=== PATIENT | female | born 1985 | race Caucasian/White ===

== ENCOUNTER 2016-07-07 11:02 | Emergency (ER) | payer OTHER ==
[2016-07-07] MEDS ORDERED: METHOCARBAMOL 1,000 MG/10 ML VIAL (J2800) As Ordered ONE (11:51)
[2016-07-07] MEDS ORDERED: KETOROLAC 30 MG/ML VIAL (J1885) As Ordered ONE (11:51)
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
--- NOTE | 2016-07-07 13:23 | EDDOCDS ---
Physician Documentation [facility] Name: Mir Taylor Age: 31 yrs Sex: Female : 1985 Arrival Date: 07/07/2016 Time: 11:02 Bed PD Private MD: NO PRIMARY PHYSICIAN, . Disposition: 07/07/16 13:12 Discharged to Home/Self Care. Impression: Low back pain, Strain of muscle, fascia and tendon of lower back. - Condition is Stable. - Discharge Instructions: Back Pain, Adult, [id number]. - Prescriptions for Medrol (James) 4 mg Oral Tablets, Dose Pack - take 1 Pack by ORAL route as directed - follow package instructions; 1 packet. Robaxin- 750 750 mg Oral Tablet - take 1 tablet by ORAL route every 6 hours As needed; 40 tablet. - Medication Reconciliation, Local Pharmacy Hours form. - Follow up: Orthopaedics, [facility]; When: 1 - 2 days; Reason: Further diagnostic work-up, Recheck today's complaints, Continuance of care. - Problem is new. - Symptoms are unchanged. Historical: - Allergies: no known allergies; - Home Meds: 1. none - PMHx: none; - PSHx: Cesearean Section; Tubal ligation; - Social history: Smoking status: Patient uses tobacco products, current every day smoker. No barriers to communication noted, The patient speaks fluent Ukrainian. - Family history: Not pertinent. - : The pt / caregiver states he / she is not on anticoagulants. Home medication list is obtained from the patient. - Exposure Risk Screening:: None identified. 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 4 in. (162.56 cm); Pain 7/10; 13:17 Pain 4/10; js13 13:17 Pain 3/10; js13 13:21 BP 143 / 70; Pulse 87; Resp 18; Temp 98.7; Pulse Ox 98% ; Pain 5/10; jam1 11:03 Body Mass Index 31.93 (84.37 kg, 162.56 cm) elp MDM: 11:39 Financial registration complete. lg 11:41 [facility] Payment Agreement was scanned into [employer] and attached to record. lg 11:48 ketorolac 30 mg IM once ordered. btw 11:48 Robaxin 250 mg IM once ordered. btw 11:49 Spine. Lumbosacral, Complete Ordered. EDMS Administered Medications: 11:57 Drug: ketorolac 30 mg [ketorolac 30 mg/mL (1 mL) injection solution (1 mL)] Route: IM; ml6 Site: left deltoid; 13:17 Follow up: Pain 3/10 Adult; Response: Pain is decreased js13 11:57 Drug: Robaxin 250 mg [Robaxin 100 mg/mL injection solution (2.5 mL)] Route: IM; Site: ml6 left vastus lateralis; 13:17 Follow up: Pain 4/10 Adult; Response: Pain is decreased js13 Signatures: Dispatcher [employer] EDMS Ofelia Dominguez Reg Reg Naomy Garza,RN RN kr3 Rigoberto Benavides PA PA btw Jessica Wing RN RN js13 Kenn Rios RN ml6 The chart was reviewed and I authenticate all verbal orders and agree with the evaluation and treatment provided.Attachments: 11:41 [facility] Payment Agreement lg MTDD
--- NOTE | 2016-07-07 15:01 | REP ---
Lumbar spine series: Five views. History: Atraumatic midline lumbar pain. Findings: Lumbar vertebral body heights are preserved. Alignment is normal. Disc spaces are maintained. Pedicles and posterior elements are intact. Facets are unremarkable. Psoas margins are symmetric. Sacrum and SI joints are intact. Impression: No abnormality noted. Signed by Wale Bazan MD 07/07/2016 03:39 P
--- NOTE | 2016-07-09 14:23 | EDDOCDS ---
Physician Documentation [facility] Name: Mir Taylor Age: 31 yrs Sex: Female : 1985 Arrival Date: 07/07/2016 Time: 11:02 Bed PD Private MD: NO PRIMARY PHYSICIAN, . Disposition: 07/07/16 13:12 Discharged to Home/Self Care. Impression: Low back pain, Strain of muscle, fascia and tendon of lower back. - Condition is Stable. - Discharge Instructions: Back Pain, Adult, [id number]. - Prescriptions for Medrol (James) 4 mg Oral Tablets, Dose Pack - take 1 Pack by ORAL route as directed - follow package instructions; 1 packet. Robaxin- 750 750 mg Oral Tablet - take 1 tablet by ORAL route every 6 hours As needed; 40 tablet. - Medication Reconciliation, Local Pharmacy Hours form. - Follow up: Orthopaedics, [facility]; When: 1 - 2 days; Reason: Further diagnostic work-up, Recheck today's complaints, Continuance of care. - Problem is new. - Symptoms are unchanged. Historical: - Allergies: no known allergies; - Home Meds: 1. none - PMHx: none; - PSHx: Cesearean Section; Tubal ligation; - Social history: Smoking status: Patient uses tobacco products, current every day smoker. No barriers to communication noted, The patient speaks fluent Arabic. - Family history: Not pertinent. - : The pt / caregiver states he / she is not on anticoagulants. Home medication list is obtained from the patient. - Exposure Risk Screening:: None identified. 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 4 in. (162.56 cm); Pain 7/10; 13:17 Pain 4/10; js13 13:17 Pain 3/10; js13 13:21 BP 143 / 70; Pulse 87; Resp 18; Temp 98.7; Pulse Ox 98% ; Pain 5/10; jam1 11:03 Body Mass Index 31.93 (84.37 kg, 162.56 cm) elp MDM: 11:39 Financial registration complete. lg 11:41 [facility] Payment Agreement was scanned into [employer] and attached to record. lg 11:48 ketorolac 30 mg IM once ordered. btw 11:48 Robaxin 250 mg IM once ordered. btw 11:49 Spine. Lumbosacral, Complete Ordered. EDMS 13:48 T-Sheet-- Draft Copy was scanned into [employer] and attached to record. seh Administered Medications: 11:57 Drug: ketorolac 30 mg [ketorolac 30 mg/mL (1 mL) injection solution (1 mL)] Route: IM; ml6 Site: left deltoid; 13:17 Follow up: Pain 3/10 Adult; Response: Pain is decreased js13 11:57 Drug: Robaxin 250 mg [Robaxin 100 mg/mL injection solution (2.5 mL)] Route: IM; Site: ml6 left vastus lateralis; 13:17 Follow up: Pain 4/10 Adult; Response: Pain is decreased js13 Signatures: Dispatcher [employer]Host EDMS Ofelia Dominguez Reg Reg lg Naomy Garza,RN RN kr3 Rigoberto Benavides PA PA btw Jessica Wing RN RN js13 Elizabeth Kincaid Matthew RN ml6 The chart was reviewed and I authenticate all verbal orders and agree with the evaluation and treatment provided.Attachments: 11:41 [facility] Payment Agreement lg 13:48 T-Sheet-- Draft Copy se Chart Complete MTDD
--- NOTE | 2016-07-09 14:23 | EDDOCDS ---
Physician Documentation [facility] Name: Mir Taylor Age: 31 yrs Sex: Female : 1985 Arrival Date: 07/07/2016 Time: 11:02 Bed PD Private MD: NO PRIMARY PHYSICIAN, . Disposition: 07/07/16 13:12 Discharged to Home/Self Care. Impression: Low back pain, Strain of muscle, fascia and tendon of lower back. - Condition is Stable. - Discharge Instructions: Back Pain, Adult, [id number]. - Prescriptions for Medrol (James) 4 mg Oral Tablets, Dose Pack - take 1 Pack by ORAL route as directed - follow package instructions; 1 packet. Robaxin- 750 750 mg Oral Tablet - take 1 tablet by ORAL route every 6 hours As needed; 40 tablet. - Medication Reconciliation, Local Pharmacy Hours form. - Follow up: Orthopaedics, [facility]; When: 1 - 2 days; Reason: Further diagnostic work-up, Recheck today's complaints, Continuance of care. - Problem is new. - Symptoms are unchanged. Historical: - Allergies: no known allergies; - Home Meds: 1. none - PMHx: none; - PSHx: Cesearean Section; Tubal ligation; - Social history: Smoking status: Patient uses tobacco products, current every day smoker. No barriers to communication noted, The patient speaks fluent Irish. - Family history: Not pertinent. - : The pt / caregiver states he / she is not on anticoagulants. Home medication list is obtained from the patient. - Exposure Risk Screening:: None identified. 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 4 in. (162.56 cm); Pain 7/10; 13:17 Pain 4/10; js13 13:17 Pain 3/10; js13 13:21 BP 143 / 70; Pulse 87; Resp 18; Temp 98.7; Pulse Ox 98% ; Pain 5/10; jam1 11:03 Body Mass Index 31.93 (84.37 kg, 162.56 cm) elp MDM: 11:39 Financial registration complete. lg 11:41 [facility] Payment Agreement was scanned into [employer] and attached to record. lg 11:48 ketorolac 30 mg IM once ordered. btw 11:48 Robaxin 250 mg IM once ordered. btw 11:49 Spine. Lumbosacral, Complete Ordered. EDMS 13:48 T-Sheet-- Draft Copy was scanned into [employer] and attached to record. seh Administered Medications: 11:57 Drug: ketorolac 30 mg [ketorolac 30 mg/mL (1 mL) injection solution (1 mL)] Route: IM; ml6 Site: left deltoid; 13:17 Follow up: Pain 3/10 Adult; Response: Pain is decreased js13 11:57 Drug: Robaxin 250 mg [Robaxin 100 mg/mL injection solution (2.5 mL)] Route: IM; Site: ml6 left vastus lateralis; 13:17 Follow up: Pain 4/10 Adult; Response: Pain is decreased js13 Signatures: Dispatcher MedHost EDMS Ofelia Dominguez Reg Reg lg Naomy Garza,RN RN kr3 Rigoberto Benavides PA PA btw Jessica Wing RN RN js13 Elizabeth Kincaid Matthew RN ml6 The chart was reviewed and I authenticate all verbal orders and agree with the evaluation and treatment provided.Attachments: 11:41 [facility] Payment Agreement lg 13:48 T-Sheet-- Draft Copy se Chart Complete MTDD
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
== END 2016-07-07 13:22 | disposition home or self-care (01) ==
LOC: M ED 11:02
DX: S33.9XXA Sprain of unspecified parts of lumbar spine and pelvis, initial encounter (principal); X50.9XXA Other and unspecified overexertion or strenuous movements or postures, initial encounter; Y92.89 Other specified places as the place of occurrence of the external cause; Y93.89 Activity, other specified; Y99.8 Other external cause status; F17.210 Nicotine dependence, cigarettes, uncomplicated

== ENCOUNTER → 2016-09-23 | Outpatient (REF) | payer OTHER ==
[2016-09-23 20:14] LABS: BASO % 0.5 % (0.0-1.0); EOS # 0.2 K/mm3 (0.0-0.50); EOS % 2.5 % (0.0-3.0); LARGE UNSTAINED CELL # 0.1 K/mm3 (0.0-0.4); LARGE UNSTAINED CELL % 1.3 % (0.0-4.0); LYMPH # 2.4 K/mm3 (1.5-6.5); LYMPH % 25.5 % (24.0-44.0); MEAN CORPUSCULAR HEMOGLOBIN 31.1 pg (27.0-33.0); MEAN CORPUSCULAR VOLUME 94.4 fl (80.0-96.0); MONO # 0.5 K/mm3 (0.0-0.8); MONO % 5.6 % (0.0-5.0); NEUTROPHILS % 64.6 % (36.0-66.0); PLATELET COUNT, AUTOMATED 378 k/mm3 (150-450); RED CELL DISTRIBUTION WIDTH 12.3 % (11.5-14.5); WHITE BLOOD COUNT 9.2 K/mm3 (4.0-10.0)
[2016-09-23 20:22] LABS: ALBUMIN/GLOBULIN RATIO 1.38 (1.00-1.93); ALKALINE PHOSPHATASE 73 U/L (45-117); ALT/SGPT 32 U/L (12-78); ANION GAP 8 MEQ/L (8-16); AST/SGOT 17 U/L (15-37); BILIRUBIN,TOTAL 0.3 MG/DL (0.2-1.0); BLOOD UREA NITROGEN 14 MG/DL (7-18); CALCIUM LEVEL 8.9 MG/DL (8.5-10.1); CARBON DIOXIDE LEVEL 25 MEQ/L (21-32); CHLORIDE LEVEL 107 MEQ/L (98-107); CREATININE FOR GFR 0.83 MG/DL (0.55-1.02); FREE T4 0.83 NG/DL (0.76-1.46); GLOMERULAR FILTRATION RATE > 60.0 (>60); GLUCOSE, FASTING 97 MG/DL (70-105); POTASSIUM SERUM 4.2 MEQ/L (3.5-5.1); SODIUM LEVEL 140 MEQ/L (136-145); TOTAL PROTEIN 6.9 GM/DL (6.4-8.2)
== END ==
LOC: M SFHCADAM 19:19
PROVIDERS: ATTEND Family Medicine
DX: R35.0 Frequency of micturition (principal); R53.83 Other fatigue

== ENCOUNTER → 2016-10-01 | Outpatient (REF) | payer OTHER | LOC: M SFHCADAM 09:43 | PROVIDERS: ATTEND Physician Assistant Medical | DX: R35.0 Frequency of micturition (principal) ==

== ENCOUNTER 2017-08-22 15:30 | Emergency (ER) | payer MEDICAID, OTHER, SELFPAY ==
[2017-08-22] MEDS ORDERED: ACETAMINOPHEN 325 MG TAB As Ordered (16:00)
[2017-08-22] MEDS: ACETAMINOPHEN 325 MG TAB PO (16:08)
[2017-08-22 16:41] LABS: INFLUENZA A AMPLIFICATION NEGATIVE (NEGATIVE); INFLUENZA B AMPLIFICATION NEGATIVE (NEGATIVE)
[2017-08-22] MEDS: PENICILLIN V POTASSIUM 500 MG TAB PO (17:40)
[2017-08-22] MEDS ORDERED: ACETAMINOPHEN 325 MG TAB PO (17:45)
== END 2017-08-22 18:14 | disposition home or self-care (01) ==
LOC: M ED 15:30
DX: J02.0 Streptococcal pharyngitis (principal); F17.210 Nicotine dependence, cigarettes, uncomplicated
CPT/HCPCS: 87502

== ENCOUNTER 2018-01-07 10:47 | Emergency (ER) | payer MEDICAID | END 2018-01-07 13:14 | disposition home or self-care (01) | LOC: M ED 10:47 | DX: J20.9 Acute bronchitis, unspecified (principal); S13.4XXA Sprain of ligaments of cervical spine, initial encounter; S23.3XXA Sprain of ligaments of thoracic spine, initial encounter; M51.34 Other intervertebral disc degeneration, thoracic region; X58.XXXA Exposure to other specified factors, initial encounter; Y92.89 Other specified places as the place of occurrence of the external cause; F17.200 Nicotine dependence, unspecified, uncomplicated | CPT/HCPCS: 71045 ==

== ENCOUNTER 2018-01-10 10:43 | Emergency (ER) | payer MEDICAID, OTHER ==
[2018-01-10] MEDS: RABIES VACCINE HUMAN 2.5 INTERNATIONAL UNITS/ML VIAL (90675) IM (12:52)
[2018-01-10] MEDS: ADACEL/BOOSTRIX VACCINE (DIPHTH/PERTUSS/ACELL/TETANUS)0.5ML SYR (90715) IM (12:54)
[2018-01-10] MEDS: RABIES IMMUNE GLOBULIN 1500 INTERNATIONAL UNITS/10 ML VIAL (90375) IM ×2 (12:56)
== END 2018-01-10 13:34 | disposition home or self-care (01) ==
LOC: M ED 10:43
DX: S61.032A Puncture wound without foreign body of left thumb without damage to nail, initial encounter (principal); W55.01XA Bitten by cat, initial encounter; Y92.821 Forest as the place of occurrence of the external cause; F17.200 Nicotine dependence, unspecified, uncomplicated; Z23 Encounter for immunization; Z79.2 Long term (current) use of antibiotics
CPT/HCPCS: 90715

== ENCOUNTER 2018-01-13 09:18 | Emergency (ER) | payer MEDICAID, OTHER ==
[2018-01-13] MEDS: RABIES VACCINE HUMAN 2.5 INTERNATIONAL UNITS/ML VIAL (90675) IM (09:47)
== END 2018-01-13 10:08 | disposition home or self-care (01) ==
LOC: M ED 09:18
DX: Z20.3 Contact with and (suspected) exposure to rabies (principal); Z23 Encounter for immunization; Z76.0 Encounter for issue of repeat prescription; J20.9 Acute bronchitis, unspecified
CPT/HCPCS: 90675

== ENCOUNTER 2018-04-07 11:55 | Emergency (ER) | payer OTHER, MEDICAID ==
[2018-04-07] MEDS: PERCOCET 5MG/325MG TAB PO (12:57)
[2018-04-07] MEDS: BUPIVACAINE HCL 0.25% 10 ML VIAL SC (14:00)
[2018-04-07] MEDS: diazePAM 5 MG TAB PO (15:31)
== END 2018-04-07 17:38 | disposition home or self-care (01) ==
LOC: M ED 11:55
DX: S61.306A Unspecified open wound of right little finger with damage to nail, initial encounter (principal); S62.606B Fracture of unspecified phalanx of right little finger, initial encounter for open fracture; W31.2XXA Contact with powered woodworking and forming machines, initial encounter; Y92.099 Unspecified place in other non-institutional residence as the place of occurrence of the external cause; Y93.89 Activity, other specified; Y99.9 Unspecified external cause status
CPT/HCPCS: 73130

== ENCOUNTER → 2018-04-14 | Outpatient (CLI) | payer OTHER ==
[2018-04-14 20:12] LABS: BASO # 0.1 10^3/uL (0.0-0.2); BASO % 0.5 % (0.0-1.0); EOS # 0.1 10^3/uL (0.0-0.50); EOS % 1.2 % (0.0-3.0); HEMATOCRIT 41.3 % (36.0-47.0); HEMOGLOBIN 13.4 g/dl (12.0-15.5); IMMATURE GRANULOCYTE % 0.4 % (0-3.0); LYMPH # 2.3 10^3/uL (1.5-4.5); LYMPH % 20.5 % (24.0-44.0); MEAN CORPUSCULAR HEMOGLOBIN 32.2 pg (27.0-33.0); MEAN CORPUSCULAR HGB CONC 32.4 g/dl (32.0-36.5); MEAN CORPUSCULAR VOLUME 99.3 fl (80.0-96.0); MONO # 0.6 10^3/uL (0.0-0.8); MONO % 5.4 % (0.0-5.0); PLATELET COUNT, AUTOMATED 355 10^3/uL (150-450); RED BLOOD COUNT 4.16 10^6/uL (4.00-5.40); RED CELL DISTRIBUTION WIDTH 13.3 % (11.5-14.5); WHITE BLOOD COUNT 11.1 10^3/uL (4.0-10.0)
[2018-04-14 20:18] LABS: ALBUMIN 4.2 GM/DL (3.2-5.2); ALKALINE PHOSPHATASE 69 U/L (45-117); ALT/SGPT 18 U/L (12-78); AMYLASE 37 U/L (25-115); ANION GAP 6 MEQ/L (8-16); AST/SGOT 10 U/L (7-37); BILIRUBIN,TOTAL 0.4 MG/DL (0.2-1.0); BLOOD UREA NITROGEN 9 MG/DL (7-18); CALCIUM LEVEL 9.1 MG/DL (8.5-10.1); CARBON DIOXIDE LEVEL 29 MEQ/L (21-32); CHLORIDE LEVEL 108 MEQ/L (98-107); CREATININE FOR GFR 0.88 MG/DL (0.55-1.30); GLOMERULAR FILTRATION RATE > 60.0 (>60); GLUCOSE, FASTING 81 MG/DL (70-100); LIPASE 134 U/L (73-393); POTASSIUM SERUM 3.9 MEQ/L (3.5-5.1); SODIUM LEVEL 143 MEQ/L (136-145)
== END ==
LOC: M ADAMS 13:51
DX: R10.9 Unspecified abdominal pain (principal)
CPT/HCPCS: 82150

== ENCOUNTER → 2018-04-23 | Outpatient (REF) | payer OTHER ==
[2018-04-25 14:10] LABS: HPV HYBRID CAPTURE II Negative (Negative)
== END ==
LOC: M LAB REF 14:03
DX: Z12.4 Encounter for screening for malignant neoplasm of cervix (principal)

== ENCOUNTER → 2018-04-23 | Outpatient (REF) | payer OTHER | LOC: M LAB REF 11:56 | DX: R30.0 Dysuria (principal) | CPT/HCPCS: 87186 ==

== ENCOUNTER 2018-06-05 11:07 | Day surgery (SDC) | payer OTHER ==
[2018-06-05] MEDS ORDERED: LR 1,000 ML IV (11:30)
[2018-06-05 11:35] LABS: HEMOGLOBIN 14.2 g/dl (12.0-15.5); MEAN CORPUSCULAR HGB CONC 33.8 g/dl (32.0-36.5); MEAN CORPUSCULAR VOLUME 97.7 fl (80.0-96.0); PLATELET COUNT, AUTOMATED 367 10^3/uL (150-450); RED CELL DISTRIBUTION WIDTH 13.2 % (11.5-14.5); WHITE BLOOD COUNT 11.9 10^3/uL (4.0-10.0)
[2018-06-05] MEDS ORDERED: LIDOCAINE 2% INJ 100 MG/5 ML SDV (FOR ANES.) As Ordered (12:03)
[2018-06-05] MEDS ORDERED: MIDAZOLAM INJ 2 MG/2 ML VIAL (J2250) As Ordered (12:03)
[2018-06-05] MEDS ORDERED: dexameTHASONE 4 MG/ML 1ML VIAL (J1100) As Ordered (12:03)
[2018-06-05] MEDS ORDERED: ONDANSETRON 4MG/2ML VIAL (J2405) As Ordered ×2 (12:03→15:45)
[2018-06-05] MEDS ORDERED: ROCURONIUM BROMIDE 50 MG/5 ML VIAL As Ordered ×2 (12:03→12:14)
[2018-06-05] MEDS ORDERED: PROPOFOL 200 MG/20 ML VIAL As Ordered (12:03)
[2018-06-05] MEDS ORDERED: fentaNYL 250 MCG/5 ML INJECTION (J3010) As Ordered (12:03)
[2018-06-05] MEDS ORDERED: ESMOLOL INJ 100MG/10ML VIAL As Ordered (12:20)
[2018-06-05] MEDS ORDERED: SCOPOLAMINE 1MG TRANSDERMAL PATCH As Ordered (13:58)
[2018-06-05] MEDS: SCOPOLAMINE 1MG TRANSDERMAL PATCH TOP (14:15)
[2018-06-05] MEDS: METHYLENE BLUE 0.5% (5MG/ML) 10 ML AMP (PROVAYBLUE)(Q9968 PER 1MG) As Ordered (14:40)
[2018-06-05] MEDS: BUPIVACAINE HCL 0.25% 30 ML VIAL As Ordered (15:10)
[2018-06-05] MEDS ORDERED: NEOSTIGMINE 10 MG/10 ML VIAL (J2710) As Ordered (15:16)
[2018-06-05] MEDS ORDERED: HYDROmorphone HCL 2 MG/ML 1ML VIAL (J1170) As Ordered (15:16)
[2018-06-05] MEDS ORDERED: KETOROLAC 60 MG/2 ML VIAL (J1885) As Ordered (15:16)
[2018-06-05] MEDS ORDERED: GLYCOPYRROLATE INJ 0.2 MG/ML 2 ML VIAL As Ordered (15:16)
[2018-06-05] MEDS ORDERED: fentaNYL 100 MCG/2 ML INJECTION (J3010) IV (16:30)
[2018-06-05] MEDS ORDERED: HYDROMORPHONE HCL 0.5 MG/ 0.5 ML SYRINGE (J1170 PER 1) IV (16:30)
[2018-06-05] MEDS: LR 1,000 ML IV ×3 (16:30→22:12)
[2018-06-05] MEDS: PERCOCET 5MG/325MG TAB PO ×3 (16:45→22:03)
[2018-06-05] MEDS: ONDANSETRON 4MG/2ML VIAL (J2405) IV (16:45)
[2018-06-05] MEDS: DOCUSATE SODIUM 100 MG CAP PO (21:24)
[2018-06-06] MEDS: PERCOCET 5MG/325MG TAB PO ×2 (01:36→05:53)
[2018-06-06] MEDS: ONDANSETRON 4MG/2ML VIAL (J2405) IV (02:09)
[2018-06-06] MEDS: MORPHINE 4 MG/ML 1ML VIAL/SYRINGE (J2270) IV (04:04)
[2018-06-06] MEDS: NICOTINE 21MG/24HR 1 EA TRANSDERMAL TD (09:00)
[2018-06-06] MEDS: DOCUSATE SODIUM 100 MG CAP PO (09:24)
[2018-06-06] MEDS: KETOROLAC 30 MG/ML VIAL (J1885) IV (09:25)
== END 2018-06-06 10:00 | disposition home or self-care (01) ==
LOC: M SDC 11:07 → M MSPAV 17:39
DX: N94.6 Dysmenorrhea, unspecified (principal); R10.2 Pelvic and perineal pain; N88.8 Other specified noninflammatory disorders of cervix uteri; N80.0 Endometriosis of uterus; K21.9 Gastro-esophageal reflux disease without esophagitis; M79.7 Fibromyalgia; Z98.51 Tubal ligation status; Z72.0 Tobacco use
CPT/HCPCS: 58570

== ENCOUNTER 2018-06-30 03:58 | Emergency (ER) | payer OTHER ==
[~2018-06-30 03:58] MED LIST: ALB2.5NEB NEB; ALBU83IN; AUGM875T28 PO; CLEO300C2 PO; CYCL10TA PO; FLUTISP; IBUP-1022 PO; MULTCAP PO; OXYC1TAB23 PO; PENI500T PO; PERC5TAB12 PO; TYLE325T5 PO; VENTAER; VENTAER INH; ZITHTAB PO
[2018-06-30] MEDS: ACETAMINOPHEN TAB 650MG DOSE (2X325MG) PO ONE (04:40)
[2018-06-30 04:48] VITALS: BP 135/82
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
== END 2018-06-30 04:56 | disposition left against medical advice (07) ==
LOC: M ED 03:58
DX: S09.90XA Unspecified injury of head, initial encounter (principal); Z53.20 Procedure and treatment not carried out because of patient's decision for unspecified reasons; Y04.8XXA Assault by other bodily force, initial encounter

== ENCOUNTER → 2018-07-17 | Outpatient (REF) | payer OTHER | LOC: M LAB REF 12:47 | PROVIDERS: ATTEND Specialist | DX: R30.0 Dysuria (principal) ==

== ENCOUNTER 2018-12-06 11:14 | Emergency (ER) | payer MEDICAID, OTHER, SELFPAY ==
[~2018-12-06] VITALS: Ht 162.6 cm; Wt 64.4 kg
[2018-12-06] MEDS ORDERED: KETOROLAC 60 MG/2 ML VIAL (J1885) IM ONE (11:45)
[2018-12-06] MEDS ORDERED: BACLOFEN 10 MG TAB PO ONE (11:45)
[2018-12-06 12:21] VITALS: BP 121/73
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
[2018-12-06] MEDS ORDERED: CYCL5TAB PO (13:40)
== END 2018-12-06 13:52 | disposition home or self-care (01) ==
LOC: M ED 11:14
DX: R07.81 Pleurodynia (principal); M54.5 Low back pain; Y04.8XXA Assault by other bodily force, initial encounter; Y92.9 Unspecified place or not applicable; Y93.9 Activity, unspecified; Y99.9 Unspecified external cause status; Z72.0 Tobacco use
CPT/HCPCS: 71101; 72110; 96372; 99284; J1885

== ENCOUNTER → 2019-05-10 | Outpatient (REF) | payer MEDICAID ==
[~2019-05-10] MED LIST changes: +CYCL5TAB PO
[2019-05-10 15:38] LABS: APPEARANCE, URINE CLEAR (CLEAR); BACTERIA, URINE AUTO NEGATIVE (NEGATIVE); BILIRUBIN, URINE AUTO NEGATIVE (NEGATIVE); BLOOD, URINE BLOOD 2+ (NEGATIVE); COLOR, URINE STRAW (YELLOW); GLUCOSE, URINE (UA) AUTO NEGATIVE (NEGATIVE); KETONE, URINE AUTO NEGATIVE (NEGATIVE); LEUKOCYTE ESTERASE, URINE AUTO TRACE (NEGATIVE); NITRITE, URINE AUTO NEGATIVE (NEGATIVE); PROTEIN, URINE AUTO NEGATIVE (NEGATIVE); RBC, URINE AUTO 6 /HPF (0-3); SPECIFIC GRAVITY URINE AUTO 1.002 (1.002-1.035); SQUAMOUS EPITHELIAL CELL UR AU 1 /HPF (0-6); UROBILINOGEN, URINE AUTO 0.2 mg/dL (0.0-2.0); WBC, URINE AUTO 5 /HPF (0-3)
== END ==
LOC: M LAB REF 14:53
PROVIDERS: ATTEND Family Medicine
DX: R30.0 Dysuria (principal)

== ENCOUNTER 2019-12-30 08:44 | Emergency (ER) | payer OTHER ==
[~2019-12-30] VITALS: Ht 162.6 cm; Wt 68.4 kg
[~2019-12-30 08:44] MED LIST changes: +CYCL-707 PO; -CYCL10TA PO
--- NOTE | 2019-12-30 09:44 | REP ---
Clinical: Chest pain . Comparison: 01/07/2018 . Technique: PA and lateral. Findings: The mediastinum and cardiac silhouette are normal. The lung acevedo are clear and without acute consolidation, effusion, or pneumothorax. The skeletal structures are intact and normal. Impression: 1. No acute cardiopulmonary process. Electronically Signed by Morgan Quiroz MD 12/30/2019 09:35 A
[2019-12-30] MEDS ORDERED: NAPR-837 PO (10:00)
[2019-12-30] MEDS ORDERED: CYCL-707 PO (10:00)
[2019-12-30 10:02] VITALS: BP 126/69
--- NOTE | 2019-12-31 00:35 | ECGEPIP ---
[facility] - ED Test Date: 2019-12-30 Pat Name: REGINALDO MERCHANT Department: Room: - Gender: Female [employer]: : [id number] Requested By: LIZ KATE PA-C. Order Number: [id number] Reading MD: Chepe Sanchez Measurements Intervals Theresa Rate: 74 P: 44 GA: 200 QRS: 54 QRSD: 91 T: 11 QT: 370 QTc: 411 Interpretive Statements SINUS RHYTHM Comparison tracing not on file Electronically Signed on 12-31-2019 0:35:33 EDT by Chepe Sanchez
== END 2019-12-30 10:06 | disposition home or self-care (01) ==
LOC: M ED 08:44
DX: M62.838 Other muscle spasm (principal); J45.901 Unspecified asthma with (acute) exacerbation; F17.200 Nicotine dependence, unspecified, uncomplicated; Z79.899 Other long term (current) drug therapy

== ENCOUNTER 2021-02-14 00:09 | Emergency (ER) | payer OTHER ==
[~2021-02-14] VITALS: Ht 160 cm; Wt 68.2 kg
[~2021-02-14 00:09] MED LIST changes: +NAPR-837 PO
[2021-02-14] MEDS ORDERED: diphenhydrAMINE 50MG/ML VIAL (J1200) As Ordered ONE (00:16)
[2021-02-14] MEDS ORDERED: LORazepam 2 MG/ML VIAL As Ordered ONE (00:16)
[2021-02-14] MEDS ORDERED: HALOPERIDOL 5MG/ML VIAL (J1630 PER 1) As Ordered ONE (00:16)
[2021-02-14] MEDS ORDERED: LORazepam 2 MG/ML VIAL IM ONE (00:20)
[2021-02-14] MEDS ORDERED: diphenhydrAMINE 50MG/ML VIAL (J1200) IM ONE (00:20)
[2021-02-14] MEDS ORDERED: HALOPERIDOL 5MG/ML VIAL (J1630 PER 1) IM ONE (00:20)
[2021-02-14 00:36] LABS: HEMATOCRIT 41.3 % (36.0-47.0); HEMOGLOBIN 13.9 g/dl (12.0-15.5); MEAN CORPUSCULAR HEMOGLOBIN 32.6 pg (27.0-33.0); MEAN CORPUSCULAR HGB CONC 33.7 g/dl (32.0-36.5); MEAN CORPUSCULAR VOLUME 96.9 fl (80.0-96.0); PLATELET COUNT, AUTOMATED 400 10^3/uL (150-450); RED BLOOD COUNT 4.26 10^6/uL (4.00-5.40); WHITE BLOOD COUNT 15.7 10^3/uL (4.0-10.0)
[2021-02-14 01:15] LABS: ACETAMINOPHEN LEVEL < 2.0 UG/ML (10.0-30.0); ALBUMIN 4.1 GM/DL (3.2-5.2); ALT/SGPT 22 U/L (12-78); BILIRUBIN,DIRECT 0.1 MG/DL (0.0-0.2); BILIRUBIN,TOTAL 0.2 MG/DL (0.2-1.0); BLOOD UREA NITROGEN 10 MG/DL (7-18); CALCIUM LEVEL 8.4 MG/DL (8.5-10.1); CARBON DIOXIDE LEVEL 18 MEQ/L (21-32); CHLORIDE LEVEL 112 MEQ/L (98-107); CREATININE FOR GFR 1.06 MG/DL (0.55-1.30); ETHYL ALCOHOL (ETHANOL) 0.106 % (0.000-0.010); GLOMERULAR FILTRATION RATE > 60.0 (>60); GLUCOSE, FASTING 118 MG/DL (70-100); POTASSIUM SERUM 3.4 MEQ/L (3.5-5.1); SALICYLATE LEVEL 3.5 MG/DL (5.0-30.0); SODIUM LEVEL 143 MEQ/L (136-145); TOTAL PROTEIN 7.3 GM/DL (6.4-8.2)
[2021-02-14 01:22] LABS: HCG, SERUM QUALITATIVE NEGATIVE (NEGATIVE)
[2021-02-14 01:32] LABS: AMPHETAMINES LEVEL URINE NEGATIVE (NEGATIVE); BARBITURATES URINE NEGATIVE (NEGATIVE); BENZODIAZEPINES URINE NEGATIVE (NEGATIVE); CANNABINOIDS URINE POSITIVE (NEGATIVE); COCAINE METABOLITE URINE POSITIVE (NEGATIVE); METHADONE URINE NEGATIVE (NEGATIVE); OPIATES URINE NEGATIVE (NEGATIVE); PHENCYCLIDINE URINE NEGATIVE (NEGATIVE)
[2021-02-14 09:07] VITALS: BP 113/78
== END 2021-02-14 09:46 | disposition home or self-care (01) ==
LOC: M ED 00:09
DX: F43.0 Acute stress reaction (principal); F14.120 Cocaine abuse with intoxication, uncomplicated; F10.120 Alcohol abuse with intoxication, uncomplicated; R45.1 Restlessness and agitation; F17.200 Nicotine dependence, unspecified, uncomplicated
CPT/HCPCS: 80048; 80076; 80143; 80307; 82077; 84443; 84703; 85027; 94760; 96374; 99285; J1200; J1630; J2060

== ENCOUNTER 2021-05-10 00:20 | Emergency (ER) | payer OTHER ==
[~2021-05-10] VITALS: Ht 162.6 cm; Wt 67.7 kg
[2021-05-10 02:15] LABS: HEMATOCRIT 35.8 % (36.0-47.0); HEMOGLOBIN 12.4 g/dl (12.0-15.5); MEAN CORPUSCULAR HEMOGLOBIN 31.9 pg (27.0-33.0); MEAN CORPUSCULAR HGB CONC 34.6 g/dl (32.0-36.5); PLATELET COUNT, AUTOMATED 328 10^3/uL (150-450); RED BLOOD COUNT 3.89 10^6/uL (4.00-5.40); WHITE BLOOD COUNT 10.1 10^3/uL (4.0-10.0)
[2021-05-10 02:35] LABS: HCG, SERUM QUALITATIVE NEGATIVE (NEGATIVE)
[2021-05-10 02:45] LABS: ACETAMINOPHEN LEVEL < 2.0 UG/ML (10.0-30.0); ALBUMIN 3.6 GM/DL (3.2-5.2); ALT/SGPT 24 U/L (12-78); BILIRUBIN,DIRECT 0.1 MG/DL (0.0-0.2); BILIRUBIN,TOTAL 0.4 MG/DL (0.2-1.0); BLOOD UREA NITROGEN 5 MG/DL (7-18); CALCIUM LEVEL 8.3 MG/DL (8.5-10.1); CARBON DIOXIDE LEVEL 27 MEQ/L (21-32); CHLORIDE LEVEL 113 MEQ/L (98-107); CREATININE FOR GFR 0.87 MG/DL (0.55-1.30); ETHYL ALCOHOL (ETHANOL) 0.164 % (0.000-0.010); GLOMERULAR FILTRATION RATE > 60.0 (>60); GLUCOSE, FASTING 98 MG/DL (70-100); POTASSIUM SERUM 3.9 MEQ/L (3.5-5.1); SALICYLATE LEVEL 3.1 MG/DL (5.0-30.0); SODIUM LEVEL 144 MEQ/L (136-145); TOTAL PROTEIN 6.5 GM/DL (6.4-8.2)
[2021-05-10 06:08] LABS: AMPHETAMINES LEVEL URINE NEGATIVE (NEGATIVE); BARBITURATES URINE NEGATIVE (NEGATIVE); BENZODIAZEPINES URINE NEGATIVE (NEGATIVE); CANNABINOIDS URINE POSITIVE (NEGATIVE); COCAINE METABOLITE URINE NEGATIVE (NEGATIVE); METHADONE URINE NEGATIVE (NEGATIVE); OPIATES URINE NEGATIVE (NEGATIVE); PHENCYCLIDINE URINE NEGATIVE (NEGATIVE)
[2021-05-10] MEDS ORDERED: HOME MED LIST COMPLETE! XX SCH (06:40)
[2021-05-10 10:01] VITALS: BP 128/71
== END 2021-05-10 10:01 | disposition home or self-care (01) ==
LOC: M ED 00:20
DX: F10.120 Alcohol abuse with intoxication, uncomplicated (principal)

== ENCOUNTER 2022-08-05 14:53 | Inpatient (IN) | payer MEDICAID, OTHER ==
[~2022-08-05] VITALS: Ht 162.6 cm; Wt 62.2 kg
[~2022-08-05 14:53] MED LIST changes: +ALBU2.5V10; -ALBU83IN
[2022-08-05 16:25] LABS: HEMATOCRIT 41.7 % (36.0-47.0); HEMOGLOBIN 13.8 g/dl (12.0-15.5); MEAN CORPUSCULAR HEMOGLOBIN 32.3 pg (27.0-33.0); MEAN CORPUSCULAR HGB CONC 33.1 g/dl (32.0-36.5); MEAN CORPUSCULAR VOLUME 97.7 fl (80.0-96.0); PLATELET COUNT, AUTOMATED 408 10^3/uL (150-450); RED BLOOD COUNT 4.27 10^6/uL (4.00-5.40); WHITE BLOOD COUNT 10.8 10^3/uL (4.0-10.0)
[2022-08-05 16:43] LABS: AMPHETAMINES LEVEL URINE NEGATIVE (NEGATIVE); BARBITURATES URINE NEGATIVE (NEGATIVE); BENZODIAZEPINES URINE NEGATIVE (NEGATIVE); COCAINE METABOLITE URINE NEGATIVE (NEGATIVE); HCG, SERUM QUALITATIVE NEGATIVE (NEGATIVE); METHADONE URINE NEGATIVE (NEGATIVE); OPIATES URINE NEGATIVE (NEGATIVE); PHENCYCLIDINE URINE NEGATIVE (NEGATIVE)
[2022-08-05 16:44] LABS: CANNABINOIDS URINE POSITIVE (NEGATIVE); ETHYL ALCOHOL (ETHANOL) 0.003 % (0.000-0.010)
[2022-08-05 16:46] LABS: ACETAMINOPHEN LEVEL < 2.0 UG/ML (10.0-20.0); ALBUMIN 4.6 G/DL (3.2-5.2); ALKALINE PHOSPHATASE 74 U/L (46-116); ALT/SGPT 9 U/L (7.0-40); AST/SGOT 18 U/L (<34); BILIRUBIN,DIRECT 0.2 MG/DL (<0.4); BILIRUBIN,TOTAL 0.4 MG/DL (0.3-1.2); BLOOD UREA NITROGEN 8 MG/DL (9-23); CALCIUM LEVEL 10.1 MG/DL (8.5-10.1); CARBON DIOXIDE LEVEL 28 MMOL/L (20-31); CHLORIDE LEVEL 106 MMOL/L (98-107); CREATININE FOR GFR 0.89 MG/DL (0.55-1.30); GLOMERULAR FILTRATION RATE > 60.0 (>60); GLUCOSE, FASTING 93 MG/DL (60-100); POTASSIUM SERUM 3.8 MMOL/L (3.5-5.1); SALICYLATE LEVEL < 3.0 MG/DL (<30); SODIUM LEVEL 139 MMOL/L (136-145); TOTAL PROTEIN 7.5 G/DL (5.7-8.2)
[2022-08-05 16:49] LABS: THYROID STIMULATING HORMONE 2.292 uIU/ML (0.55-4.78)
[2022-08-05] MEDS ORDERED: NS 1,000 ML IV ONE (20:25)
[2022-08-05] MEDS ORDERED: HOME MED LIST COMPLETE! XX SCH (22:15)
[2022-08-05] MEDS ORDERED: OLANZapine ORAL DISINTEGRATING TAB 5MG PO ONE (22:55)
[2022-08-05] MEDS ORDERED: OLANZapine ORAL DISINTEGRATING TAB 5MG PO PRN (23:30)
[2022-08-05] MEDS ORDERED: diphenhydrAMINE 25MG CAP PO PRN (23:30)
[2022-08-05] MEDS ORDERED: MOM 30ML SUSPENSION UDC PO PRN (23:30)
[2022-08-05] MEDS ORDERED: MAALOX 30 ML SUSP *UDC PO PRN (23:30)
[2022-08-06 01:45] VITALS: BP 107/68
[2022-08-06] MEDS ORDERED: OLANZapine 5 MG TAB PO ONE (10:00)
[2022-08-06 18:12] VITALS: BP 149/85
[2022-08-06] MEDS: DIVALPROEX 250MG *ER* TAB PO SCH (20:55)
[2022-08-06] MEDS: traZODone 50 MG TAB PO PRN (20:55)
[2022-08-06] MEDS ORDERED: OLANZapine 5 MG TAB PO SCH (21:00)
[2022-08-07 07:18] LABS: CHOLESTEROL RISK RATIO 4.22 (<5); HDL CHOLESTEROL 35.5 MG/DL (>40); LDL CHOLESTEROL 92.3 MG/DL (<100)
[2022-08-07] MEDS: DIVALPROEX 250MG *ER* TAB PO SCH ×2 (10:09→20:24)
[2022-08-07] MEDS: ACETAMINOPHEN TAB 650MG DOSE (2X325MG) PO PRN (10:10)
[2022-08-07] MEDS: NICOTINE 21MG/24HR 1 EA TRANSDERMAL TD SCH (16:03)
[2022-08-07 19:12] VITALS: BP 130/81
[2022-08-07] MEDS: traZODone 50 MG TAB PO PRN (20:24)
[2022-08-08 07:05] VITALS: BP 108/54
[2022-08-08] MEDS: DIVALPROEX 250MG *ER* TAB PO SCH ×2 (09:10→19:53)
[2022-08-08] MEDS: NICOTINE 21MG/24HR 1 EA TRANSDERMAL TD SCH (09:10)
[2022-08-08 18:02] VITALS: BP 115/56
[2022-08-08] MEDS: traZODone 50 MG TAB PO PRN (19:53)
[2022-08-08] MEDS: ACETAMINOPHEN TAB 650MG DOSE (2X325MG) PO PRN (19:55)
[2022-08-08] MEDS ORDERED: BENZTROPINE 1 MG TAB PO ONE (20:45)
[2022-08-08] MEDS ORDERED: BENZTROPINE 1 MG TAB PO PRN (23:00)
[2022-08-09 06:18] VITALS: BP 119/58
[2022-08-09] MEDS ORDERED: diphenhydrAMINE 50MG CAP PO PRN (09:20)
[2022-08-09] MEDS: DIVALPROEX 250MG *ER* TAB PO SCH (09:34)
[2022-08-09] MEDS: NICOTINE 21MG/24HR 1 EA TRANSDERMAL TD SCH (09:34)
[2022-08-09] MEDS ORDERED: DIPH-435 PO (11:05)
[2022-08-09] MEDS ORDERED: NICO21PAT TD (11:05)
[2022-08-09] MEDS ORDERED: DEPA250T2 PO (11:05)
[2022-08-09] MEDS ORDERED: HALO5TAB33 PO (11:05)
== END 2022-08-09 13:33 | disposition home or self-care (01) | DRG 753 ==
LOC: M ED 14:53 → M ED INP 23:27 → M PSY 08-06 01:40
PROVIDERS: ADMIT Student in an Organized Health Care Education/Training Program; ATTEND Student in an Organized Health Care Education/Training Program
DX: F31.9 Bipolar disorder, unspecified (principal); F10.10 Alcohol abuse, uncomplicated; F12.90 Cannabis use, unspecified, uncomplicated; F15.90 Other stimulant use, unspecified, uncomplicated; F43.10 Post-traumatic stress disorder, unspecified; F17.200 Nicotine dependence, unspecified, uncomplicated

== ENCOUNTER 2022-10-15 00:20 | Emergency (ER) | payer MEDICAID, OTHER ==
[~2022-10-15] VITALS: Ht 162.6 cm; Wt 66.4 kg
[~2022-10-15 00:20] MED LIST changes: +DEPA250T2 PO; +DIPH-435 PO; +FLUT50SP17; -FLUTISP; +HALO5TAB33 PO; +NICO21PAT TD
[2022-10-15] MEDS ORDERED: diphenhydrAMINE 50MG/ML VIAL IM ONE (00:30)
[2022-10-15] MEDS ORDERED: HALOPERIDOL 5MG/ML 1ML VIAL IM ONE (00:30)
[2022-10-15] MEDS ORDERED: MIDAZOLAM INJ 2MG/2ML VIAL IM ONE (00:30)
[2022-10-15] MEDS ORDERED: NS 1,000 ML IV ONE (00:30)
[2022-10-15 00:59] LABS: BASO # 0.1 10^3/uL (0.0-0.2); BASO % 0.6 % (0.0-1.0); EOS # 0.1 10^3/uL (0.0-0.5); EOS % 1.2 % (0.0-3.0); HEMATOCRIT 38.9 % (36.0-47.0); LYMPH # 2.8 10^3/uL (1.5-5.0); MEAN CORPUSCULAR HEMOGLOBIN 32.3 pg (27.0-33.0); MEAN CORPUSCULAR HGB CONC 33.4 g/dl (32.0-36.5); MEAN CORPUSCULAR VOLUME 96.8 fl (80.0-96.0); MONO # 0.6 10^3/uL (0.0-0.8); MONO % 5.9 % (2.0-8.0); NEUTROPHILS # 6.6 10^3/uL (1.5-8.5); NEUTROPHILS % 64.5 % (36.0-66.0); PLATELET COUNT, AUTOMATED 370 10^3/uL (150-450); RED BLOOD COUNT 4.02 10^6/uL (4.00-5.40); WHITE BLOOD COUNT 10.2 10^3/uL (4.0-10.0)
[2022-10-15 01:12] LABS: ETHYL ALCOHOL (ETHANOL) 0.296 % (0.000-0.010); VALPROIC ACID (DEPAKOTE) < 3.0 UG/ML (50.0-100.0)
[2022-10-15 01:13] LABS: SALICYLATE LEVEL < 3.0 MG/DL (<30)
[2022-10-15 01:14] LABS: ACETAMINOPHEN LEVEL < 2.0 UG/ML (10.0-20.0); CPK CREATINE PHOSPHOKINASE 138 U/L (34-145)
[2022-10-15 01:16] LABS: ALKALINE PHOSPHATASE 67 U/L (46-116); ALT/SGPT 18 U/L (7.0-40); AST/SGOT 15 U/L (<34); BILIRUBIN,DIRECT < 0.1 MG/DL (<0.4); BILIRUBIN,TOTAL 0.2 MG/DL (0.3-1.2); BLOOD UREA NITROGEN < 5 MG/DL (9-23); CALCIUM LEVEL 8.6 MG/DL (8.5-10.1); CARBON DIOXIDE LEVEL 28 MMOL/L (20-31); CHLORIDE LEVEL 111 MMOL/L (98-107); CREATININE FOR GFR 0.78 MG/DL (0.55-1.30); GLOMERULAR FILTRATION RATE > 60.0 (>60); GLUCOSE, FASTING 123 MG/DL (60-100); POTASSIUM SERUM 5.5 MMOL/L (3.5-5.1); SODIUM LEVEL 146 MMOL/L (136-145); THYROID STIMULATING HORMONE 5.365 uIU/ML (0.55-4.78); TOTAL PROTEIN 6.7 G/DL (5.7-8.2)
[2022-10-15 01:20] LABS: HCG, SERUM QUALITATIVE NEGATIVE (NEGATIVE)
[2022-10-15 01:25] LABS: RSV AMPLIFICATION NEGATIVE (NEGATIVE)
[2022-10-15 01:57] LABS: AMPHETAMINES LEVEL URINE NEGATIVE (NEGATIVE); BARBITURATES URINE NEGATIVE (NEGATIVE); BENZODIAZEPINES URINE NEGATIVE (NEGATIVE)
[2022-10-15 01:58] LABS: CANNABINOIDS URINE POSITIVE (NEGATIVE); COCAINE METABOLITE URINE POSITIVE (NEGATIVE); METHADONE URINE NEGATIVE (NEGATIVE); OPIATES URINE NEGATIVE (NEGATIVE); PHENCYCLIDINE URINE NEGATIVE (NEGATIVE)
[2022-10-15 08:29] VITALS: BP 106/67
== END 2022-10-15 08:32 | disposition home or self-care (01) ==
LOC: EDBD 00:20 → M ED 00:20
DX: F10.129 Alcohol abuse with intoxication, unspecified (principal); F31.9 Bipolar disorder, unspecified; F19.10 Other psychoactive substance abuse, uncomplicated
CPT/HCPCS: 51701; 80048; 80076; 80143; 80164; 80307; 82077; 82550; 84443; 84703; 85025; 87631; 93005; 93041; 94760; 96372; 99285; J1200; J1630; J2250

== ENCOUNTER → 2022-11-28 | Outpatient (CLI) | payer OTHER ==
[2022-11-28 14:22] LABS: HEPATITIS B SURFACE ANTIGEN NEGATIVE (NEGATIVE)
[2022-11-28 14:35] LABS: HIV 1&2 SCREEN NEGATIVE (NEGATIVE)
[2022-11-28 14:44] LABS: HEPATITIS C VIRUS ABY INDEX 0.1 INDEX (<0.8)
[2022-11-28 15:50] LABS: GC DNA AMPLIFICATION NEGATIVE (NEGATIVE)
== END ==
LOC: M PLALAB 11:27
PROVIDERS: ATTEND Nurse Practitioner Family
DX: Z12.4 Encounter for screening for malignant neoplasm of cervix (principal); Z11.3 Encounter for screening for infections with a predominantly sexual mode of transmission; R87.810 Cervical high risk human papillomavirus (HPV) DNA test positive; R87.5 Abnormal microbiological findings in specimens from female genital organs

== ENCOUNTER 2022-12-09 11:40 | Emergency (ER) | payer OTHER ==
[~2022-12-09] VITALS: Ht 165.1 cm; Wt 65.4 kg
[2022-12-09] MEDS ORDERED: NS 1,000 ML IV ONE (12:10)
[2022-12-09] MEDS ORDERED: LORazepam 2 MG/ML 1ML VIAL IV STA (12:14)
[2022-12-09] MEDS ORDERED: OLANZapine ORAL DISINTEGRATING TAB 5MG PO ONE (12:15)
[2022-12-09] MEDS ORDERED: OLANZapine INTRAMUSCULAR 10MG VIAL IM ONE (12:20)
[2022-12-09 12:32] LABS: BASO # 0.1 10^3/uL (0.0-0.2); BASO % 0.7 % (0.0-1.0); EOS # 0.1 10^3/uL (0.0-0.5); EOS % 0.5 % (0.0-3.0); HEMATOCRIT 37.6 % (36.0-47.0); LYMPH # 2.5 10^3/uL (1.5-5.0); LYMPH % 25.2 % (24.0-44.0); MEAN CORPUSCULAR HEMOGLOBIN 32.7 pg (27.0-33.0); MEAN CORPUSCULAR HGB CONC 34.6 g/dl (32.0-36.5); MEAN CORPUSCULAR VOLUME 94.7 fl (80.0-96.0); MONO # 0.7 10^3/uL (0.0-0.8); MONO % 7.2 % (2.0-8.0); NEUTROPHILS # 6.5 10^3/uL (1.5-8.5); NEUTROPHILS % 65.8 % (36.0-66.0); PLATELET COUNT, AUTOMATED 348 10^3/uL (150-450); RED BLOOD COUNT 3.97 10^6/uL (4.00-5.40); WHITE BLOOD COUNT 9.8 10^3/uL (4.0-10.0)
[2022-12-09 12:36] LABS: ETHYL ALCOHOL (ETHANOL) < 0.003 % (0.000-0.010)
[2022-12-09 12:38] LABS: ACETAMINOPHEN LEVEL 48.8 UG/ML (10.0-20.0); ALBUMIN 4.1 G/DL (3.2-5.2); ALKALINE PHOSPHATASE 58 U/L (46-116); ALT/SGPT 16 U/L (7.0-40); AST/SGOT 13 U/L (<34); BILIRUBIN,DIRECT 0.2 MG/DL (<0.4); BILIRUBIN,TOTAL 0.4 MG/DL (0.3-1.2); BLOOD UREA NITROGEN 9 MG/DL (9-23); CALCIUM LEVEL 9.4 MG/DL (8.5-10.1); CARBON DIOXIDE LEVEL 20 MMOL/L (20-31); CHLORIDE LEVEL 108 MMOL/L (98-107); CREATININE FOR GFR 0.85 MG/DL (0.55-1.30); GLOMERULAR FILTRATION RATE > 60.0 (>60); GLUCOSE, FASTING 134 MG/DL (60-100); POTASSIUM SERUM 3.5 MMOL/L (3.5-5.1); SALICYLATE LEVEL 23.1 MG/DL (<30); SODIUM LEVEL 139 MMOL/L (136-145); TOTAL PROTEIN 6.6 G/DL (5.7-8.2)
[2022-12-09 12:40] LABS: THYROID STIMULATING HORMONE 2.569 uIU/ML (0.55-4.78)
[2022-12-09 12:42] LABS: HCG, SERUM QUALITATIVE NEGATIVE (NEGATIVE)
[2022-12-09 12:46] LABS: CPK CREATINE PHOSPHOKINASE 203 U/L (34-145)
[2022-12-09 12:56] LABS: BARBITURATES URINE NEGATIVE (NEGATIVE); BENZODIAZEPINES URINE NEGATIVE (NEGATIVE); COCAINE METABOLITE URINE NEGATIVE (NEGATIVE); METHADONE URINE NEGATIVE (NEGATIVE); OPIATES URINE NEGATIVE (NEGATIVE); PHENCYCLIDINE URINE NEGATIVE (NEGATIVE)
[2022-12-09 12:58] LABS: AMPHETAMINES LEVEL URINE NEGATIVE (NEGATIVE)
[2022-12-09 13:02] LABS: CANNABINOIDS URINE POSITIVE (NEGATIVE)
[2022-12-09 14:32] LABS: VENOUS BASE EXCESS -3.4 (-2.0-2.0); VENOUS HCO3 19.9 MMOL/L (23.0-27.0); VENOUS O2 SATURATION 98.5 % (60.0-80.0); VENOUS PARTIAL PRESSURE O2 141.6 mmHg (30.0-50.0); VENOUS PH 7.439 UNITS (7.330-7.430); VENOUS STANDARD HCO3 21.7 MMOL/L; VENOUS TOTAL CO2 20.8 MMOL/L (24.0-28.0)
[2022-12-09 15:08] LABS: BLOOD UREA NITROGEN 8 MG/DL (9-23); CARBON DIOXIDE LEVEL 23 MMOL/L (20-31); CHLORIDE LEVEL 114 MMOL/L (98-107); CREATININE FOR GFR 0.84 MG/DL (0.55-1.30); GLOMERULAR FILTRATION RATE > 60.0 (>60); GLUCOSE, FASTING 99 MG/DL (60-100); POTASSIUM SERUM 3.9 MMOL/L (3.5-5.1); SALICYLATE LEVEL 23.5 MG/DL (<30); SODIUM LEVEL 143 MMOL/L (136-145)
[2022-12-09 15:26] LABS: RSV AMPLIFICATION NEGATIVE (NEGATIVE)
[2022-12-09 17:04] LABS: VENOUS BASE EXCESS -1.9 (-2.0-2.0); VENOUS HCO3 21.2 MMOL/L (23.0-27.0); VENOUS O2 SATURATION 99.2 % (60.0-80.0); VENOUS PARTIAL PRESSURE CO2 31.3 mmHg (38.0-50.0); VENOUS PARTIAL PRESSURE O2 205.9 mmHg (30.0-50.0); VENOUS PH 7.449 UNITS (7.330-7.430); VENOUS STANDARD HCO3 22.9 MMOL/L; VENOUS TOTAL CO2 22.2 MMOL/L (24.0-28.0)
[2022-12-09 17:41] LABS: ACETAMINOPHEN LEVEL 33.3 UG/ML (10.0-20.0); ALBUMIN 3.4 G/DL (3.2-5.2); ALKALINE PHOSPHATASE 50 U/L (46-116); ALT/SGPT 16 U/L (7.0-40); AST/SGOT 12 U/L (<34); BILIRUBIN,TOTAL 0.3 MG/DL (0.3-1.2); BLOOD UREA NITROGEN 8 MG/DL (9-23); CARBON DIOXIDE LEVEL 23 MMOL/L (20-31); CHLORIDE LEVEL 112 MMOL/L (98-107); CREATININE FOR GFR 0.83 MG/DL (0.55-1.30); GLOMERULAR FILTRATION RATE > 60.0 (>60); GLUCOSE, FASTING 102 MG/DL (60-100); POTASSIUM SERUM 3.9 MMOL/L (3.5-5.1); SALICYLATE LEVEL 23.4 MG/DL (<30); SODIUM LEVEL 142 MMOL/L (136-145); TOTAL PROTEIN 5.5 G/DL (5.7-8.2)
[2022-12-10 01:00] VITALS: BP 111/58
[2022-12-10 01:07] VITALS: TEMP 98.5; O2SAT 95
== END 2022-12-10 04:18 | disposition left against medical advice (07) ==
LOC: M ED 11:40
DX: T50.992A Poisoning by other drugs, medicaments and biological substances, intentional self-harm, initial encounter (principal); R44.3 Hallucinations, unspecified; F43.0 Acute stress reaction
CPT/HCPCS: 80048; 80053; 80076; 80143; 80164; 80179; 80307; 82077; 82550; 82803; 84443; 84703; 85025; 87631; 93005; 93041; 94760; 96372; 96374; 99285; J2060; S0166

== ENCOUNTER 2022-12-10 03:30 | Inpatient (IN) | payer MEDICAID, OTHER ==
[~2022-12-10] VITALS: Ht 162.6 cm; Wt 59.1 kg
[2022-12-10 04:20] LABS: BLOOD UREA NITROGEN 8 MG/DL (9-23); CALCIUM LEVEL 8.6 MG/DL (8.5-10.1); CARBON DIOXIDE LEVEL 22 MMOL/L (20-31); CHLORIDE LEVEL 113 MMOL/L (98-107); CREATININE FOR GFR 0.99 MG/DL (0.55-1.30); GLOMERULAR FILTRATION RATE > 60.0 (>60); GLUCOSE, FASTING 85 MG/DL (60-100); POTASSIUM SERUM 3.9 MMOL/L (3.5-5.1); SALICYLATE LEVEL 18.9 MG/DL (<30); SODIUM LEVEL 142 MMOL/L (136-145)
[2022-12-10 04:42] LABS: HEMATOCRIT 37.4 % (36.0-47.0); HEMOGLOBIN 12.5 g/dl (12.0-15.5); MEAN CORPUSCULAR HEMOGLOBIN 32.1 pg (27.0-33.0); MEAN CORPUSCULAR HGB CONC 33.4 g/dl (32.0-36.5); MEAN CORPUSCULAR VOLUME 96.1 fl (80.0-96.0); PLATELET COUNT, AUTOMATED 325 10^3/uL (150-450); RED BLOOD COUNT 3.89 10^6/uL (4.00-5.40); WHITE BLOOD COUNT 8.9 10^3/uL (4.0-10.0)
[2022-12-10 05:07] LABS: ETHYL ALCOHOL (ETHANOL) < 0.003 % (0.000-0.010)
[2022-12-10 05:08] LABS: ACETAMINOPHEN LEVEL 6.2 UG/ML (10.0-20.0); SALICYLATE LEVEL 16.1 MG/DL (<30)
[2022-12-10 05:11] LABS: THYROID STIMULATING HORMONE 1.177 uIU/ML (0.55-4.78)
[2022-12-10 05:12] LABS: ALBUMIN 3.6 G/DL (3.2-5.2); ALKALINE PHOSPHATASE 52 U/L (46-116); ALT/SGPT 15 U/L (7.0-40); AST/SGOT 14 U/L (<34); BILIRUBIN,DIRECT < 0.1 MG/DL (<0.4); BILIRUBIN,TOTAL 0.3 MG/DL (0.3-1.2); BLOOD UREA NITROGEN 9 MG/DL (9-23); CALCIUM LEVEL 8.4 MG/DL (8.5-10.1); CARBON DIOXIDE LEVEL 20 MMOL/L (20-31); CHLORIDE LEVEL 113 MMOL/L (98-107); CREATININE FOR GFR 1.05 MG/DL (0.55-1.30); GLOMERULAR FILTRATION RATE > 60.0 (>60); GLUCOSE, FASTING 118 MG/DL (60-100); POTASSIUM SERUM 3.4 MMOL/L (3.5-5.1); SODIUM LEVEL 142 MMOL/L (136-145); TOTAL PROTEIN 5.8 G/DL (5.7-8.2)
[2022-12-10 05:13] LABS: HCG, SERUM QUALITATIVE NEGATIVE (NEGATIVE)
[2022-12-10 09:58] LABS: AMPHETAMINES LEVEL URINE NEGATIVE (NEGATIVE); BARBITURATES URINE NEGATIVE (NEGATIVE); BENZODIAZEPINES URINE NEGATIVE (NEGATIVE); PHENCYCLIDINE URINE NEGATIVE (NEGATIVE)
[2022-12-10 09:59] LABS: CANNABINOIDS URINE POSITIVE (NEGATIVE); COCAINE METABOLITE URINE NEGATIVE (NEGATIVE); METHADONE URINE NEGATIVE (NEGATIVE); OPIATES URINE NEGATIVE (NEGATIVE)
[2022-12-10] MEDS ORDERED: MOM 30ML SUSPENSION UDC PO PRN (10:50)
[2022-12-10] MEDS ORDERED: MAALOX 30 ML SUSP *UDC PO PRN (10:50)
[2022-12-10] MEDS ORDERED: traZODone 50 MG TAB PO PRN (10:50)
[2022-12-10] MEDS ORDERED: HOME MED LIST COMPLETE! XX SCH (11:25)
[2022-12-10] MEDS: diphenhydrAMINE 25MG CAP PO PRN (12:42)
[2022-12-10] MEDS: NICOTINE 14 MG/24 HR TRANSDERMAL TD SCH (12:50)
[2022-12-10 12:55] VITALS: BP 122/61; TEMP 97.7; O2SAT 98
[2022-12-10 17:50] VITALS: BP 135/74; TEMP 97.1
[2022-12-10] MEDS ORDERED: OLANZapine ORAL DISINTEGRATING TAB 5MG PO PRN (17:50)
[2022-12-11 06:25] VITALS: BP 118/69; TEMP 98.6; O2SAT 97
[2022-12-11] MEDS: NICOTINE 14 MG/24 HR TRANSDERMAL TD SCH ×2 (09:00→13:16)
[2022-12-11] MEDS ORDERED: POTASSIUM CHLORIDE 10MEQ SR TABLET PO ONE (09:55)
[2022-12-11] MEDS: risperiDONE 1 MG TAB PO SCH ×2 (11:40→20:16)
[2022-12-11 12:48] LABS: APPEARANCE, URINE CLEAR (CLEAR); BACTERIA, URINE AUTO NEGATIVE (NEGATIVE); BILIRUBIN, URINE AUTO NEGATIVE (NEGATIVE); BLOOD, URINE BLOOD NEGATIVE (NEGATIVE); COLOR, URINE STRAW (YELLOW); GLUCOSE, URINE (UA) AUTO NEGATIVE (NEGATIVE); KETONE, URINE AUTO NEGATIVE (NEGATIVE); LEUKOCYTE ESTERASE, URINE AUTO NEGATIVE (NEGATIVE); NITRITE, URINE AUTO NEGATIVE (NEGATIVE); PROTEIN, URINE AUTO NEGATIVE (NEGATIVE); RBC, URINE AUTO 1 /HPF (0-3); SPECIFIC GRAVITY URINE AUTO 1.003 (1.002-1.035); SQUAMOUS EPITHELIAL CELL UR AU 4 /HPF (0-6); UROBILINOGEN, URINE AUTO 0.2 mg/dL (0.0-2.0); WBC, URINE AUTO 1 /HPF (0-3)
[2022-12-11 18:11] VITALS: BP 128/78; TEMP 96.6
[2022-12-11] MEDS ORDERED: risperiDONE 1 MG TAB PO SCH (21:00)
[2022-12-11] MEDS ORDERED: IBUPROFEN 400MG TAB PO PRN (21:20)
[2022-12-11] MEDS: diphenhydrAMINE 25MG CAP PO PRN (21:25)
[2022-12-12] MEDS: risperiDONE 1 MG TAB PO SCH ×2 (08:39→20:16)
[2022-12-12] MEDS: NICOTINE 14 MG/24 HR TRANSDERMAL TD SCH (08:40)
[2022-12-12 08:46] LABS: CHOLESTEROL RISK RATIO 3.08 (<5); HDL CHOLESTEROL 44.4 MG/DL (>40); LDL CHOLESTEROL 73.4 MG/DL (<100); NON-HDL-C 92.6 MG/DL
[2022-12-12] MEDS ORDERED: traZODone 100 MG TAB PO PRN (10:30)
[2022-12-12 16:52] VITALS: BP 139/81; TEMP 96.7; O2SAT 96
[2022-12-12] MEDS: diphenhydrAMINE 25MG CAP PO PRN (20:16)
[2022-12-13 06:40] VITALS: BP 131/93; TEMP 97.9; O2SAT 97
[2022-12-13] MEDS ORDERED: RISP-8 PO (07:52)
[2022-12-13] MEDS ORDERED: TRAZ-257 PO (07:52)
[2022-12-13] MEDS: risperiDONE 1 MG TAB PO SCH (08:47)
[2022-12-13] MEDS: NICOTINE 14 MG/24 HR TRANSDERMAL TD SCH (08:48)
[2022-12-14] MEDS ORDERED: RISP-8 PO (03:26)
[2022-12-14] MEDS ORDERED: TRAZ-257 PO (03:26)
== END 2022-12-13 09:15 | disposition home or self-care (01) | DRG 751 ==
LOC: M ED 03:30 → M ED INP 10:48 → M PSY 12:34
PROVIDERS: ADMIT Student in an Organized Health Care Education/Training Program; ATTEND Student in an Organized Health Care Education/Training Program
DX: F29 Unspecified psychosis not due to a substance or known physiological condition (principal); R45.851 Suicidal ideations; F10.10 Alcohol abuse, uncomplicated; F12.90 Cannabis use, unspecified, uncomplicated; F17.210 Nicotine dependence, cigarettes, uncomplicated; F15.90 Other stimulant use, unspecified, uncomplicated; Z56.0 Unemployment, unspecified; E87.6 Hypokalemia; Z91.51 Personal history of suicidal behavior; Z91.52 Personal history of nonsuicidal self-harm; Z20.822 Contact with and (suspected) exposure to COVID-19

== ENCOUNTER 2022-12-13 17:41 | Inpatient (IN) | payer MEDICAID, OTHER ==
[~2022-12-13] VITALS: Ht 162.6 cm; Wt 66.7 kg
[~2022-12-13 17:41] MED LIST changes: +RISP-8 PO; +TRAZ-257 PO
[2022-12-13] MEDS ORDERED: LIDOCAINE 2% W/EPINEPHRINE 20ML VIAL **PRES FREE INJ ONE (18:20)
[2022-12-13] MEDS ORDERED: NS 1,000 ML IV ONE (18:20)
[2022-12-13 18:25] LABS: BASO # 0.1 10^3/uL (0.0-0.2); BASO % 0.6 % (0.0-1.0); EOS # 0.1 10^3/uL (0.0-0.5); EOS % 1.2 % (0.0-3.0); HEMATOCRIT 35.6 % (36.0-47.0); LYMPH # 1.8 10^3/uL (1.5-5.0); LYMPH % 21.2 % (24.0-44.0); MEAN CORPUSCULAR HEMOGLOBIN 32.8 pg (27.0-33.0); MEAN CORPUSCULAR HGB CONC 33.7 g/dl (32.0-36.5); MEAN CORPUSCULAR VOLUME 97.3 fl (80.0-96.0); MONO # 0.6 10^3/uL (0.0-0.8); MONO % 7.1 % (2.0-8.0); NEUTROPHILS # 5.7 10^3/uL (1.5-8.5); NEUTROPHILS % 69.5 % (36.0-66.0); PLATELET COUNT, AUTOMATED 267 10^3/uL (150-450); RED BLOOD COUNT 3.66 10^6/uL (4.00-5.40); WHITE BLOOD COUNT 8.3 10^3/uL (4.0-10.0)
[2022-12-13 18:53] LABS: ETHYL ALCOHOL (ETHANOL) < 0.003 % (0.000-0.010)
[2022-12-13 18:55] LABS: ACETAMINOPHEN LEVEL < 2.0 UG/ML (10.0-20.0); ALBUMIN 3.7 G/DL (3.2-5.2); ALKALINE PHOSPHATASE 49 U/L (46-116); ALT/SGPT 12 U/L (7.0-40); AST/SGOT 8 U/L (<34); BILIRUBIN,DIRECT 0.1 MG/DL (<0.4); BILIRUBIN,TOTAL 0.3 MG/DL (0.3-1.2); BLOOD UREA NITROGEN 11 MG/DL (9-23); CALCIUM LEVEL 9.6 MG/DL (8.5-10.1); CARBON DIOXIDE LEVEL 25 MMOL/L (20-31); CHLORIDE LEVEL 108 MMOL/L (98-107); CREATININE FOR GFR 0.81 MG/DL (0.55-1.30); GLOMERULAR FILTRATION RATE > 60.0 (>60); GLUCOSE, FASTING 96 MG/DL (60-100); SALICYLATE LEVEL < 3.0 MG/DL (<30); SODIUM LEVEL 141 MMOL/L (136-145); TOTAL PROTEIN 5.9 G/DL (5.7-8.2)
[2022-12-13 18:57] LABS: RSV AMPLIFICATION NEGATIVE (NEGATIVE); THYROID STIMULATING HORMONE 2.065 uIU/ML (0.55-4.78)
[2022-12-13 18:58] LABS: HCG, SERUM QUALITATIVE NEGATIVE (NEGATIVE)
[2022-12-13 19:04] LABS: CPK CREATINE PHOSPHOKINASE 81 U/L (34-145)
[2022-12-13] MEDS ORDERED: ONDANSETRON 4MG 2ML VIAL IV ONE (19:15)
[2022-12-13] MEDS ORDERED: LORazepam 2 MG/ML 1ML VIAL IV STA (20:02)
[2022-12-13 20:37] LABS: AMPHETAMINES LEVEL URINE NEGATIVE (NEGATIVE)
[2022-12-13 20:38] LABS: BARBITURATES URINE NEGATIVE (NEGATIVE); BENZODIAZEPINES URINE NEGATIVE (NEGATIVE); COCAINE METABOLITE URINE NEGATIVE (NEGATIVE); METHADONE URINE NEGATIVE (NEGATIVE); OPIATES URINE NEGATIVE (NEGATIVE); PHENCYCLIDINE URINE NEGATIVE (NEGATIVE)
[2022-12-13 20:43] LABS: CANNABINOIDS URINE POSITIVE (NEGATIVE)
[2022-12-14] MEDS ORDERED: TRAZ-257 PO (03:26)
[2022-12-14] MEDS ORDERED: RISP-8 PO (03:26)
[2022-12-14] MEDS ORDERED: HOME MED LIST COMPLETE! XX SCH (03:30)
[2022-12-14] MEDS ORDERED: traZODone 50 MG TAB PO PRN (06:05)
[2022-12-14] MEDS ORDERED: MAALOX 30 ML SUSP *UDC PO PRN (06:05)
[2022-12-14] MEDS ORDERED: ACETAMINOPHEN TAB 650MG DOSE (2X325MG) PO PRN (06:05)
[2022-12-14] MEDS ORDERED: IBUPROFEN 400MG TAB PO PRN (06:05)
[2022-12-14] MEDS ORDERED: MOM 30ML SUSPENSION UDC PO PRN (06:05)
[2022-12-14] MEDS: risperiDONE 1 MG TAB PO SCH ×2 (09:50→20:08)
[2022-12-14] MEDS: diphenhydrAMINE 25MG CAP PO PRN ×2 (10:19→20:15)
[2022-12-14 10:35] VITALS: BP 113/71; TEMP 97.7; O2SAT 98
[2022-12-14 18:00] VITALS: BP 117/61; TEMP 97.5
[2022-12-14] MEDS: traZODone 100 MG TAB PO PRN (20:09)
[2022-12-15 06:59] VITALS: BP 113/56; TEMP 98.9; O2SAT 98
[2022-12-15] MEDS: risperiDONE 1 MG TAB PO SCH ×2 (08:46→20:10)
[2022-12-15] MEDS: NICOTINE 21MG/24HR 1 EA TRANSDERMAL TD SCH (12:11)
[2022-12-15 18:00] VITALS: BP 120/63; TEMP 98
[2022-12-15] MEDS: diphenhydrAMINE 25MG CAP PO PRN (20:10)
[2022-12-15] MEDS: traZODone 100 MG TAB PO PRN (20:10)
[2022-12-16 05:59] VITALS: BP 127/85; TEMP 98.6; O2SAT 99
[2022-12-16] MEDS: NICOTINE 21MG/24HR 1 EA TRANSDERMAL TD SCH (08:23)
[2022-12-16] MEDS: risperiDONE 1 MG TAB PO SCH ×2 (08:23→20:13)
[2022-12-16] MEDS: diphenhydrAMINE 25MG CAP PO PRN (20:13)
[2022-12-17 06:55] VITALS: BP 119/79; TEMP 97.9; O2SAT 100
[2022-12-17] MEDS: NICOTINE 21MG/24HR 1 EA TRANSDERMAL TD SCH (09:00)
[2022-12-17] MEDS: risperiDONE 1 MG TAB PO SCH ×2 (09:23→20:06)
[2022-12-17 16:50] VITALS: BP 111/56; TEMP 98.2; O2SAT 99
[2022-12-17] MEDS: diphenhydrAMINE 25MG CAP PO PRN (20:06)
[2022-12-18 06:58] VITALS: BP 136/77; TEMP 98.3; O2SAT 100
[2022-12-18] MEDS: NICOTINE 21MG/24HR 1 EA TRANSDERMAL TD SCH (09:00)
[2022-12-18] MEDS: risperiDONE 1 MG TAB PO SCH ×2 (09:36→20:04)
[2022-12-18 16:52] VITALS: BP 110/59; TEMP 98; O2SAT 100
[2022-12-18] MEDS: diphenhydrAMINE 25MG CAP PO PRN (20:03)
[2022-12-19 06:16] VITALS: BP 124/58; TEMP 97.5; O2SAT 100
[2022-12-19] MEDS: risperiDONE 1 MG TAB PO SCH (08:32)
[2022-12-19] MEDS: NICOTINE 21MG/24HR 1 EA TRANSDERMAL TD SCH (08:32)
[2022-12-19] MEDS ORDERED: RISP-8 PO (09:05)
[2022-12-19] MEDS ORDERED: TRAZ-257 PO (09:05)
== END 2022-12-19 10:02 | disposition home or self-care (01) | DRG 751 ==
LOC: M ED 17:41 → M ED INP 12-14 06:03 → M PSY 12-14 10:14
PROVIDERS: ADMIT Psychiatry & Neurology Psychiatry; ATTEND Student in an Organized Health Care Education/Training Program
DX: F29 Unspecified psychosis not due to a substance or known physiological condition (principal); F32.3 Major depressive disorder, single episode, severe with psychotic features; F25.9 Schizoaffective disorder, unspecified; F17.200 Nicotine dependence, unspecified, uncomplicated; F12.90 Cannabis use, unspecified, uncomplicated; Z79.899 Other long term (current) drug therapy

== ENCOUNTER 2023-01-05 12:53 | Emergency (ER) | payer OTHER, MEDICAID ==
[~2023-01-05] VITALS: Ht 162.6 cm; Wt 68.8 kg
[2023-01-05 15:28] VITALS: BP 136/86; TEMP 97.5; O2SAT 100
== END 2023-01-05 16:36 | disposition home or self-care (01) ==
LOC: M ED 12:53
DX: S50.02XA Contusion of left elbow, initial encounter (principal); W22.09XA Striking against other stationary object, initial encounter; F17.200 Nicotine dependence, unspecified, uncomplicated; Z79.899 Other long term (current) drug therapy

== ENCOUNTER 2023-03-08 12:57 | Emergency (ER) | payer OTHER ==
[~2023-03-08] VITALS: Ht 162.6 cm; Wt 77.6 kg
[2023-03-08 15:05] LABS: RSV AMPLIFICATION NEGATIVE (NEGATIVE)
[2023-03-08] MEDS ORDERED: PRED20TA PO (17:37)
[2023-03-08] MEDS ORDERED: ALBU2.5V10 NEB (17:37)
[2023-03-08] MEDS ORDERED: DOXY-443 PO (17:37)
[2023-03-08 17:42] VITALS: BP 139/81; TEMP 97.6; O2SAT 99
== END 2023-03-08 17:47 | disposition home or self-care (01) ==
LOC: M ED 12:57
DX: J20.9 Acute bronchitis, unspecified (principal); F17.200 Nicotine dependence, unspecified, uncomplicated; F10.10 Alcohol abuse, uncomplicated; Z79.52 Long term (current) use of systemic steroids; Z79.899 Other long term (current) drug therapy

== ENCOUNTER → 2023-06-05 | Outpatient (REF) | payer OTHER, MEDICAID ==
[~2023-06-05] MED LIST changes: +ALBU2.5V10 NEB; +DOXY-443 PO; -FLUT50SP17; +FLUTISP; +PRED20TA PO
[2023-06-05 13:26] LABS: APPEARANCE, URINE CLOUDY (CLEAR); BACTERIA, URINE AUTO 1+ (NEGATIVE); BILIRUBIN, URINE AUTO NEGATIVE (NEGATIVE); BLOOD, URINE BLOOD 2+ (NEGATIVE); COLOR, URINE YELLOW (YELLOW); GLUCOSE, URINE (UA) AUTO NEGATIVE (NEGATIVE); KETONE, URINE AUTO NEGATIVE (NEGATIVE); LEUKOCYTE ESTERASE, URINE AUTO 3+ (NEGATIVE); MUCUS, URINE SMALL (NEGATIVE); NITRITE, URINE AUTO POSITIVE (NEGATIVE); PROTEIN, URINE AUTO 1+ mg/dL (NEGATIVE); RBC, URINE AUTO 10 /HPF (0-3); SPECIFIC GRAVITY URINE AUTO 1.014 (1.002-1.035); SQUAMOUS EPITHELIAL CELL UR AU 1 /HPF (0-6); UROBILINOGEN, URINE AUTO 0.2 mg/dL (0.0-2.0); WBC, URINE AUTO TNTC /HPF (0-3)
== END ==
LOC: M LAB REF 12:21
PROVIDERS: ATTEND Physician Assistant Medical
DX: N39.0 Urinary tract infection, site not specified (principal)

== ENCOUNTER 2023-06-25 10:28 | Inpatient (IN) | payer MEDICAID, OTHER ==
[2023-06-25] MEDS ORDERED: DERMABOND TOPICAL SKIN ADHESIVE TOP ONE (10:50)
[2023-06-25] MEDS ORDERED: OLANZapine ORAL DISINTEGRATING TAB 5MG PO ONE (10:50)
[2023-06-25] MEDS ORDERED: MED REC IN PROGRESS XX SCH (10:55)
[2023-06-25] MEDS ORDERED: OLANZapine INTRAMUSCULAR 10MG VIAL IM ONE ×2 (11:00→21:30)
[2023-06-25 12:06] LABS: HEMATOCRIT 40.9 % (36.0-47.0); HEMOGLOBIN 13.9 g/dl (12.0-15.5); MEAN CORPUSCULAR VOLUME 94.2 fl (80.0-96.0); PLATELET COUNT, AUTOMATED 398 10^3/uL (150-450); RED BLOOD COUNT 4.34 10^6/uL (4.00-5.40); WHITE BLOOD COUNT 14.9 10^3/uL (4.0-10.0)
[2023-06-25 12:40] LABS: ETHYL ALCOHOL (ETHANOL) 0.003 % (0.000-0.010)
[2023-06-25 12:42] LABS: SALICYLATE LEVEL < 3.0 MG/DL (<30)
[2023-06-25 12:43] LABS: ALBUMIN 4.1 G/DL (3.2-5.2); ALKALINE PHOSPHATASE 75 U/L (46-116); ALT/SGPT 15 U/L (7.0-40); AST/SGOT 14 U/L (<34); BILIRUBIN,DIRECT 0.2 MG/DL (<0.4); BILIRUBIN,TOTAL 0.5 MG/DL (0.3-1.2); BLOOD UREA NITROGEN 8 MG/DL (9-23); CALCIUM LEVEL 9.5 MG/DL (8.5-10.1); CARBON DIOXIDE LEVEL 18 MMOL/L (20-31); CHLORIDE LEVEL 108 MMOL/L (98-107); CREATININE FOR GFR 0.89 MG/DL (0.55-1.30); GLOMERULAR FILTRATION RATE > 60.0 (>60); GLUCOSE, FASTING 106 MG/DL (60-100); POTASSIUM SERUM 3.8 MMOL/L (3.5-5.1); SODIUM LEVEL 138 MMOL/L (136-145); THYROID STIMULATING HORMONE 1.661 uIU/ML (0.55-4.78); TOTAL PROTEIN 6.8 G/DL (5.7-8.2)
[2023-06-25 12:54] LABS: HCG, SERUM QUALITATIVE NEGATIVE (NEGATIVE)
[2023-06-25 14:05] LABS: AMPHETAMINES LEVEL URINE NEGATIVE (NEGATIVE); BARBITURATES URINE NEGATIVE (NEGATIVE); BENZODIAZEPINES URINE NEGATIVE (NEGATIVE); COCAINE METABOLITE URINE NEGATIVE (NEGATIVE); METHADONE URINE NEGATIVE (NEGATIVE); OPIATES URINE NEGATIVE (NEGATIVE); PHENCYCLIDINE URINE NEGATIVE (NEGATIVE)
[2023-06-25 14:07] LABS: CANNABINOIDS URINE POSITIVE (NEGATIVE)
[2023-06-25] MEDS ORDERED: ARIP1TAB4 PO (14:11)
[2023-06-25] MEDS ORDERED: NITR100C2 PO (14:11)
[2023-06-25] MEDS ORDERED: HOME MED LIST COMPLETE! XX SCH (14:15)
[2023-06-25] MEDS ORDERED: ACETAMINOPHEN TAB 650MG DOSE (2X325MG) PO PRN (15:25)
[2023-06-25] MEDS ORDERED: MAALOX 30 ML SUSP *UDC PO PRN (15:25)
[2023-06-25] MEDS ORDERED: IBUPROFEN 400MG TAB PO PRN (15:25)
[2023-06-25] MEDS ORDERED: MOM 30ML SUSPENSION UDC PO PRN (15:25)
[2023-06-25] MEDS ORDERED: NICOTINE 21MG/24HR 1 EA TRANSDERMAL TD ONE (22:00)
[2023-06-26] MEDS: traZODone 50 MG TAB PO PRN ×2 (02:41→20:40)
[2023-06-26] MEDS: OLANZapine ORAL DISINTEGRATING TAB 5MG PO PRN (04:02)
[2023-06-26 04:14] VITALS: BP 113/85; TEMP 97.5; O2SAT 96
[2023-06-26 06:28] VITALS: BP 133/83; TEMP 97.5; O2SAT 100
[2023-06-26] MEDS: risperiDONE 1 MG TAB PO SCH ×3 (09:00→20:40)
[2023-06-26 17:56] VITALS: BP 138/83; TEMP 97.1; O2SAT 100
[2023-06-27] MEDS: risperiDONE 1 MG TAB PO SCH ×2 (09:00→20:53)
[2023-06-27] MEDS ORDERED: risperiDONE LONG-ACTING 37.5MG 2ML INJ IM SCH (09:00)
[2023-06-27] MEDS: NICOTINE 21MG/24HR 1 EA TRANSDERMAL TD SCH (14:11)
[2023-06-27 17:20] VITALS: BP 146/70; TEMP 97.5
[2023-06-27] MEDS: OLANZapine ORAL DISINTEGRATING TAB 5MG PO PRN (20:53)
[2023-06-27] MEDS: diphenhydrAMINE 25MG CAP PO PRN (20:53)
[2023-06-27] MEDS: traZODone 50 MG TAB PO PRN (20:53)
[2023-06-28] MEDS: OLANZapine ORAL DISINTEGRATING TAB 5MG PO PRN (01:12)
[2023-06-28 06:31] VITALS: BP 150/74; TEMP 98.5; O2SAT 97
[2023-06-28] MEDS: risperiDONE 1 MG TAB PO SCH ×2 (08:23→20:15)
[2023-06-28] MEDS: diphenhydrAMINE 25MG CAP PO PRN ×2 (08:55→20:15)
[2023-06-28] MEDS ORDERED: LORazepam 1 MG TAB PO PRN (09:00)
[2023-06-28] MEDS: NICOTINE 21MG/24HR 1 EA TRANSDERMAL TD SCH (09:00)
[2023-06-28] MEDS: DIVALPROEX 250MG *ER* TAB PO SCH ×2 (10:03→20:15)
[2023-06-28 17:41] VITALS: BP 136/82; TEMP 97.6
[2023-06-28] MEDS: traZODone 50 MG TAB PO PRN (20:15)
[2023-06-29 06:30] VITALS: BP 141/70; TEMP 97.8; O2SAT 95
[2023-06-29] MEDS: DIVALPROEX 250MG *ER* TAB PO SCH ×2 (08:33→20:08)
[2023-06-29] MEDS: risperiDONE 1 MG TAB PO SCH ×2 (08:33→20:08)
[2023-06-29] MEDS: NICOTINE 21MG/24HR 1 EA TRANSDERMAL TD SCH (08:34)
[2023-06-29 17:52] VITALS: BP 156/92; TEMP 97.3
[2023-06-29] MEDS: diphenhydrAMINE 25MG CAP PO PRN (20:08)
[2023-06-29] MEDS: traZODone 50 MG TAB PO PRN (20:08)
[2023-06-30 06:23] VITALS: BP 139/78; TEMP 99.2; O2SAT 95
[2023-06-30] MEDS: NICOTINE 21MG/24HR 1 EA TRANSDERMAL TD SCH (09:00)
[2023-06-30] MEDS: risperiDONE 1 MG TAB PO SCH (09:02)
[2023-06-30] MEDS: DIVALPROEX 250MG *ER* TAB PO SCH (09:02)
[2023-06-30] MEDS ORDERED: HALO5TAB33 PO (09:38)
[2023-06-30] MEDS ORDERED: RISP-8 PO (09:38)
[2023-06-30] MEDS ORDERED: NICO21PAT TD (09:38)
[2023-06-30] MEDS ORDERED: RISP37INJ IM (09:38)
[2023-06-30] MEDS ORDERED: DEPA250T2 PO (09:38)
[2023-06-30] MEDS ORDERED: TRAZ-252 PO (09:38)
== END 2023-06-30 10:50 | disposition home or self-care (01) | DRG 750 ==
LOC: M ED 10:28 → M ED INP 15:21 → M PSY 06-26 02:22
PROVIDERS: ADMIT Student in an Organized Health Care Education/Training Program; ATTEND Student in an Organized Health Care Education/Training Program
DX: F25.0 Schizoaffective disorder, bipolar type (principal); F12.90 Cannabis use, unspecified, uncomplicated; F10.10 Alcohol abuse, uncomplicated; F15.90 Other stimulant use, unspecified, uncomplicated; Z79.899 Other long term (current) drug therapy; F17.200 Nicotine dependence, unspecified, uncomplicated; E87.20 Acidosis, unspecified; D72.829 Elevated white blood cell count, unspecified

== ENCOUNTER → 2023-07-21 | Outpatient (REF) | payer OTHER ==
[~2023-07-21] MED LIST changes: +ARIP1TAB4 PO; +NITR100C2 PO; +RISP-105 PO; -RISP-8 PO; +RISP37INJ IM; +TRAZ-252 PO
[2023-07-21 12:42] LABS: APPEARANCE, URINE CLOUDY (CLEAR); BACTERIA, URINE AUTO NEGATIVE (NEGATIVE); BILIRUBIN, URINE AUTO NEGATIVE (NEGATIVE); BLOOD, URINE BLOOD 2+ (NEGATIVE); COLOR, URINE YELLOW (YELLOW); GLUCOSE, URINE (UA) AUTO NEGATIVE (NEGATIVE); KETONE, URINE AUTO NEGATIVE (NEGATIVE); LEUKOCYTE ESTERASE, URINE AUTO 3+ (NEGATIVE); NITRITE, URINE AUTO NEGATIVE (NEGATIVE); PROTEIN, URINE AUTO NEGATIVE (NEGATIVE); RBC, URINE AUTO 6 /HPF (0-3); SQUAMOUS EPITHELIAL CELL UR AU 4 /HPF (0-6); UROBILINOGEN, URINE AUTO 0.2 mg/dL (0.0-2.0); WBC, URINE AUTO TNTC /HPF (0-3)
== END ==
LOC: M LAB REF 11:42
PROVIDERS: ATTEND Physician Assistant Medical
DX: N39.0 Urinary tract infection, site not specified (principal)

== ENCOUNTER → 2023-09-19 | Outpatient (REF) | payer OTHER ==
[2023-09-19 17:50] LABS: BASO % 0.4 % (0.0-1.0); EOS # 0.2 10^3/uL (0.0-0.5); EOS % 2.6 % (0.0-3.0); HEMATOCRIT 40.7 % (36.0-47.0); HEMOGLOBIN 13.5 g/dl (12.0-15.5); LYMPH # 2.3 10^3/uL (1.5-5.0); MEAN CORPUSCULAR HEMOGLOBIN 31.6 pg (27.0-33.0); MEAN CORPUSCULAR HGB CONC 33.2 g/dl (32.0-36.5); MEAN CORPUSCULAR VOLUME 95.3 fl (80.0-96.0); MONO # 0.7 10^3/uL (0.0-0.8); MONO % 7.2 % (2.0-8.0); NEUTROPHILS # 5.9 10^3/uL (1.5-8.5); NEUTROPHILS % 63.8 % (36.0-66.0); PLATELET COUNT, AUTOMATED 332 10^3/uL (150-450); RED BLOOD COUNT 4.27 10^6/uL (4.00-5.40); WHITE BLOOD COUNT 9.3 10^3/uL (4.0-10.0)
[2023-09-19 18:08] LABS: THYROID STIMULATING HORMONE 2.487 uIU/ML (0.55-4.78)
[2023-09-19 18:09] LABS: ALBUMIN 3.6 G/DL (3.2-5.2); ALKALINE PHOSPHATASE 75 U/L (46-116); ALT/SGPT 17 U/L (7.0-40); AST/SGOT 11 U/L (<34); BILIRUBIN,TOTAL 0.2 MG/DL (0.3-1.2); BLOOD UREA NITROGEN 15 MG/DL (9-23); CALCIUM LEVEL 9.1 MG/DL (8.5-10.1); CARBON DIOXIDE LEVEL 26 MMOL/L (20-31); CHLORIDE LEVEL 110 MMOL/L (98-107); CHOLESTEROL LEVEL 151 MG/DL (<200); CHOLESTEROL RISK RATIO 3.73 (<5); CREATININE FOR GFR 0.87 MG/DL (0.55-1.30); GLOMERULAR FILTRATION RATE > 60.0 (>60); GLUCOSE, FASTING 90 MG/DL (60-100); HDL CHOLESTEROL 40.4 MG/DL (>40); LDL CHOLESTEROL 90.8 MG/DL (<100); NON-HDL-C 110.6 MG/DL; SODIUM LEVEL 139 MMOL/L (136-145); TOTAL PROTEIN 6.5 G/DL (5.7-8.2); TRIGLYCERIDES LEVEL 99 MG/DL (<150)
[2023-09-19 18:10] LABS: TOTAL 25(OH) VITAMIN D 20.9 NG/ML (20.0-100.0)
== END ==
LOC: M LAB REF 16:01
PROVIDERS: ATTEND Nurse Practitioner Family
DX: E55.9 Vitamin D deficiency, unspecified (principal); E66.3 Overweight

== ENCOUNTER → 2024-04-27 | Outpatient (CLI) | payer OTHER ==
[~2024-04-27] MED LIST changes: +DOXY-441 PO; -DOXY-443 PO
[2024-04-27 12:24] LABS: HEMATOCRIT 37.1 % (36.0-47.0); HEMOGLOBIN 12.6 g/dl (12.0-15.5); MEAN CORPUSCULAR HEMOGLOBIN 32.2 pg (27.0-33.0); MEAN CORPUSCULAR VOLUME 94.9 fl (80.0-96.0); PLATELET COUNT, AUTOMATED 352 10^3/uL (150-450); RED BLOOD COUNT 3.91 10^6/uL (4.00-5.40); WHITE BLOOD COUNT 10.5 10^3/uL (4.0-10.0)
[2024-04-27 12:48] LABS: VALPROIC ACID (DEPAKOTE) 16.6 UG/ML (50.0-100.0)
[2024-04-27 12:49] LABS: ALBUMIN 3.5 G/DL (3.2-5.2); ALKALINE PHOSPHATASE 82 U/L (35-104); ALT/SGPT 18 U/L (7.0-40); AST/SGOT 9 U/L (<34); BILIRUBIN,TOTAL 0.2 MG/DL (0.3-1.2); BLOOD UREA NITROGEN 12 MG/DL (9-23); CALCIUM LEVEL 9.6 MG/DL (8.5-10.1); CARBON DIOXIDE LEVEL 28 MMOL/L (20-31); CHLORIDE LEVEL 107 MMOL/L (98-107); CHOLESTEROL LEVEL 156 MG/DL (<200); CHOLESTEROL RISK RATIO 3.52 (<5); CREATININE FOR GFR 0.93 MG/DL (0.55-1.30); GLOMERULAR FILTRATION RATE > 60.0 (>60); GLUCOSE, FASTING 93 MG/DL (60-100); HDL CHOLESTEROL 44.2 MG/DL (>40); LDL CHOLESTEROL 81.6 MG/DL (<100); MAGNESIUM LEVEL 2.1 MG/DL (1.8-2.4); NON-HDL-C 111.8 MG/DL; POTASSIUM SERUM 4.5 MMOL/L (3.5-5.1); SODIUM LEVEL 139 MMOL/L (136-145); TOTAL PROTEIN 6.4 G/DL (5.7-8.2); TRIGLYCERIDES LEVEL 151 MG/DL (<150)
[2024-04-27 12:56] LABS: PROLACTIN 26.13 NG/ML; THYROID STIMULATING HORMONE 3.039 uIU/ML (0.55-4.78); TOTAL 25(OH) VITAMIN D 34.7 NG/ML (20.0-100.0)
[2024-04-27 12:57] LABS: FOLATE 21.81 NG/ML (>5.4); FREE T4 1.12 NG/DL (0.89-1.76)
== END ==
LOC: M LAB 11:26
PROVIDERS: ATTEND Nurse Practitioner Psychiatric/Mental Health
DX: F25.0 Schizoaffective disorder, bipolar type (principal)

== ENCOUNTER → 2024-09-20 | Outpatient (REF) | payer OTHER ==
[~2024-09-20] MED LIST changes: -CYCL5TAB PO; +CYCL5TAB4 PO
[2024-09-20 18:41] LABS: APPEARANCE, URINE CLOUDY (CLEAR); BACTERIA, URINE AUTO 1+ (NEGATIVE); BILIRUBIN, URINE AUTO NEGATIVE (NEGATIVE); BLOOD, URINE BLOOD NEGATIVE (NEGATIVE); COLOR, URINE YELLOW (YELLOW); GLUCOSE, URINE (UA) AUTO NEGATIVE (NEGATIVE); KETONE, URINE AUTO NEGATIVE (NEGATIVE); LEUKOCYTE ESTERASE, URINE AUTO 1+ (NEGATIVE); MUCUS, URINE SMALL (NEGATIVE); NITRITE, URINE AUTO POSITIVE (NEGATIVE); PROTEIN, URINE AUTO NEGATIVE (NEGATIVE); RBC, URINE AUTO 0 /HPF (0-3); SPECIFIC GRAVITY URINE AUTO 1.018 (1.002-1.035); SQUAMOUS EPITHELIAL CELL UR AU 11 /HPF (0-6); UROBILINOGEN, URINE AUTO 0.2 mg/dL (0.0-2.0); WBC, URINE AUTO 21 /HPF (0-3)
== END ==
LOC: M LAB REF 17:51
PROVIDERS: ATTEND Physician Assistant Medical
DX: N39.0 Urinary tract infection, site not specified (principal)

== ENCOUNTER → 2025-02-14 | Outpatient (REF) | payer OTHER ==
[~2025-02-14] MED LIST changes: +DEPA250T PO; -DEPA250T2 PO
[2025-02-14 18:26] LABS: APPEARANCE, URINE CLOUDY (CLEAR); BACTERIA, URINE AUTO NEGATIVE (NEGATIVE); BILIRUBIN, URINE AUTO NEGATIVE (NEGATIVE); BLOOD, URINE BLOOD 2+ (NEGATIVE); GLUCOSE, URINE (UA) AUTO NEGATIVE (NEGATIVE); KETONE, URINE AUTO NEGATIVE (NEGATIVE); LEUKOCYTE ESTERASE, URINE AUTO 3+ (NEGATIVE); NITRITE, URINE AUTO NEGATIVE (NEGATIVE); PROTEIN, URINE AUTO 1+ mg/dL (NEGATIVE); RBC, URINE AUTO 27 /HPF (0-3); SPECIFIC GRAVITY URINE AUTO 1.020 (1.002-1.035); SQUAMOUS EPITHELIAL CELL UR AU 8 /HPF (0-6); UROBILINOGEN, URINE AUTO 0.2 mg/dL (0.0-2.0); WBC, URINE AUTO TNTC /HPF (0-3)
== END ==
LOC: M LAB REF 17:19
PROVIDERS: ATTEND Physician Assistant Medical
DX: N39.0 Urinary tract infection, site not specified (principal)